=== PATIENT | female | born 2000 | race African-American/Black ===

== ENCOUNTER 2023-07-26 18:12 | Emergency (ER) | payer OTHER, MEDICAID ==
[~2023-07-26] VITALS: Ht 160 cm; Wt 72.6 kg
[2023-07-26 18:18] VITALS: BP_SYST 119; PULSE 97; RESP 16; TEMP 97.5; O2SAT 97
[2023-07-26 18:56] VITALS: BP_SYST 119; PULSE 97; RESP 16; TEMP 97.5; O2SAT 97
== END 2023-07-26 18:56 | disposition home or self-care (01) ==
LOC: SED 18:12
DX: S93.402A Sprain of unspecified ligament of left ankle, initial encounter (principal); Z79.899 Other long term (current) drug therapy; X58.XXXA Exposure to other specified factors, initial encounter; Y93.89 Activity, other specified; Y92.89 Other specified places as the place of occurrence of the external cause; Y99.8 Other external cause status
CPT/HCPCS: 99283